=== PATIENT | male | born 1970 | race Two or more races ===

== ENCOUNTER 2020-10-13 17:41 | Emergency (ER) | payer OTHER ==
[~2020-10-13] VITALS: Ht 185.4 cm; Wt 81.6 kg
[2020-10-13] MEDS ORDERED: KETO10TA2 PO (19:32)
== END 2020-10-13 21:14 | disposition home or self-care (01) ==
LOC: ER 17:41
DX: S91.311A Laceration without foreign body, right foot, initial encounter (principal); W26.8XXA Contact with other sharp object(s), not elsewhere classified, initial encounter; Y93.01 Activity, walking, marching and hiking; Y92.832 Beach as the place of occurrence of the external cause; Y99.8 Other external cause status